=== PATIENT | female | born 1960 | race Caucasian/White ===

== ENCOUNTER 2020-02-17 11:43 | Inpatient (IN) | payer OTHER ==
[~2020-02-17] VITALS: Ht 160 cm; Wt 90.7 kg
[~2020-02-17 11:43] MED LIST: FLOMAX0.4 MG PO; HTN MED; NORCO 5-325 TA1 EACH PO; ZOFRAN4 MG PO
[2020-02-17 11:52] VITALS: BP 172/90
[2020-02-17 12:12] LABS: ABSOLUTE BASOPHILS 0.1 thou/uL (0.0-0.2); ABSOLUTE EOSINOPHILS 0.1 thou/uL (0.0-0.7); ABSOLUTE LYMPHOCYTES 1.3 thou/uL (0.8-5.3); ABSOLUTE MONOCYTES 0.9 thou/uL (0.0-1.2); ABSOLUTE NEUTROPHILS 7.7 thou/uL (1.6-8.1); BASOPHILS 0.6 %; EOSINOPHILS 1.2 %; HEMATOCRIT 45.4 % (37.0-47.0); HEMOGLOBIN 15.5 gm/dL (12.0-15.0); LYMPHOCYTES 12.7 %; MCHC 34.2 g/dL (28.0-37.0); MCV 96.4 fL (80.0-100.0); MONOCYTES 8.9 %; MPV 9.6 fl. (7.2-11.1); NUCLEATED RBCS 0 /100WBC; PLATELET COUNT* 102 thou/uL (150-400); POLYS 76.6 %; RBC 4.71 mil/uL (4.20-5.00)
[2020-02-17 12:21] LABS: CALCIUM 10.1 mg/dL (8.5-10.1); POTASSIUM 3.5 mmol/L (3.5-5.1)
[2020-02-17 12:25] LABS: ALBUMIN 3.1 g/dL (3.4-5.0); TOTAL BILIRUBIN 1.9 mg/dL (<0.1-1.0); TOTAL PROTEIN 6.5 g/dL (6.4-8.2)
[2020-02-17 12:33] LABS: APTT 21.7 Seconds (25.0-31.3); PROTIME 10.1 Seconds (9.20-11.50)
[2020-02-17 15:05] LABS: BE -0.1 mmol/L (-2 to +3); pH 7.384 (7.340-7.450)
[2020-02-17 15:07] LABS: PO2 55.2 mmHg (75.0-100.0)
--- NOTE | 2020-02-17 16:17 | EKG ---
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1960 Requested By: Kelly Mcneil Order Number: [id number] MD: Alonso Simon Measurements Intervals [place] Rate: 83 P: 3 DE: 185 QRS: -41 QRSD: 95 T: 29 QT: 373 QTc: 439 Interpretive Statements Sinus rhythm Left axis deviation Abnormal R-wave progression, late transition Compared to ECG 01/29/2006 21:07:28 Left-axis deviation now present Ventricular premature complex(es) no longer present Electronically Signed On 02-17-2020 16:15:49 CDT by Alonso Simon [email or web address] <ELECTRONICALLY SIGNED> By: Alonso Simon MD, FAC 02/17/20 1615 1153 1153 Alonso Simon MD, LOCATED WITHIN [facility] /EPI
[2020-02-17 16:37] LABS: INFLUENZA A ANTIGEN Negative (Negative); INFLUENZA B ANTIGEN Negative (Negative)
[2020-02-17 18:45] VITALS: BP 141/80
[2020-02-17 18:50] LABS: DIRECT BILIRUBIN 0.6 mg/dL (<0.1-0.3); TOTAL BILIRUBIN 1.9 mg/dL (<0.1-1.0)
--- NOTE | 2020-02-17 20:27 | NUR ---
I TOOK REPORT ON THE PATIENT AT 0840 FROM THE ED FROM [facility]. PATIENT WAS SETTLED AND WAS CONTACTED. HER LEVOQUIN WAS COMPLETED. FALL RISK SHEET WAS SIGNED AND WRIST BAND WAS VERIFIED. REPORT WAS GIVEN TO BRUCE. ADMISSION IS NOT COMPLETED.
[2020-02-17 21:00] VITALS: BP 143/79
[2020-02-18] VITALS: BP 164/87
[2020-02-18 04:00] VITALS: BP 159/91
--- NOTE | 2020-02-18 04:13 | NUR ---
PT A&OX4, ASSESSMENTS COMPLETED CHARTED, MEDICATIONS ADMINISTERED PER MAR. HOURLY ROUNDING FOR SAFETY. CONT ISOLATION AIRBORNE AND CONTACT. CALL LIGHT WITHIN REACH, CONT PLAN OF CARE.
[2020-02-18 04:36] LABS: HEMATOCRIT 42.7 % (37.0-47.0); HEMOGLOBIN 14.4 gm/dL (12.0-15.0); MCH 32.6 pg (26.0-34.0); MCHC 33.6 g/dL (28.0-37.0); MPV 10.2 fl. (7.2-11.1); RBC 4.4 mil/uL (4.20-5.00); RDW-CV 14.9 % (10.5-14.5); WBC 10.2 thou/uL (4.0-11.0)
[2020-02-18 04:52] LABS: ALBUMIN 2.4 g/dL (3.4-5.0); ALKALINE PHOSPHATASE 150 U/L (46-116); ANION GAP 6 mmol/L (7-16); BUN 19 mg/dL (7-18); CALCIUM 9.7 mg/dL (8.5-10.1); CHLORIDE 109 mmol/L (98-107); CHOLESTEROL 171 mg/dL (<200); CO2 29 mmol/L (21-32); CREATININE 1.1 mg/dL (0.6-1.3); GLUCOSE 98 mg/dL (70-99); HDL CHOLESTEROL 69 mg/dL (>40); LDL CHOLESTEROL 83 mg/dL (<100); MAGNESIUM 2.3 mg/dL (1.8-2.4); POTASSIUM 3.9 mmol/L (3.5-5.1); SERUM ASSESSMENT CLEAR; SGOT 36 U/L (15-37); SGPT 43 U/L (30-65); SODIUM 144 mmol/L (136-145); TC:HDL 2.5 Ratio (Not establshd); TOTAL BILIRUBIN 1.8 mg/dL (<0.1-1.0); TOTAL PROTEIN 5.9 g/dL (6.4-8.2); TRIGLYCERIDE 97 mg/dL (<150); VLDL 19 mg/dL (<40)
--- NOTE | 2020-02-18 11:07 | EKG ---
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1960 Requested By: Everette White Order Number: [id number] Joshua MD: Alonso Simon Measurements Intervals [place] Rate: 80 P: 23 ID: 176 QRS: -35 QRSD: 98 T: 17 QT: 395 QTc: 456 Interpretive Statements Sinus rhythm Left axis deviation Low voltage, extremity leads Abnormal R-wave progression, late transition Compared to ECG 02/17/2020 11:53:01 Low QRS voltage now present Electronically Signed On 02-18-2020 11:06:32 CDT by Alonso Simon [email or web address] <ELECTRONICALLY SIGNED> By: Alonso Simon MD, [facility] 02/18/20 1106 0026 0026 Alonso Simon MD, FAC /EPI
--- NOTE | 2020-02-18 11:07 | EKG ---
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1960 Requested By: Everette White Order Number: [id number] Joshua MD: Alonso Simon Measurements Intervals [place] Rate: 75 P: 18 [place]: 174 QRS: -23 QRSD: 100 T: 10 QT: 392 QTc: 438 Interpretive Statements Sinus rhythm Ventricular premature complex Borderline left axis deviation Borderline low voltage, extremity leads Abnormal R-wave progression, late transition Compared to ECG 02/17/2020 11:53:01 Ventricular premature complex(es) now present Electronically Signed On 02-18-2020 11:06:11 CDT by Alonso Simon [email or web address] <ELECTRONICALLY SIGNED> By: Alonso Simon MD, [facility] 02/18/20 1106 08 08 Alonso Simon MD, [facility] /EPI
--- NOTE | 2020-02-18 12:17 | 2DMMODE ---
[place] [address] 2 D/M-MODE ECHOCARDIOGRAM Name: YASHARINI Room: [address] IN [facility]#: [id number] Admission: 02/17/20 Attend Phys: Everette White, Discharge: Date of : 64 Date of Service: 02/18/20 1216 Report #: [id number] THIS REPORT FOR: cc: Alonso Mendiola III, Ghaison F. DO Holkins,Alonso Bocanegra MD [facility] ~ APPROVED REPORT Study performed: 02/18/2020 10:52:46 EXAM: Comprehensive 2D, Doppler, and color-flow Echocardiogram Patient Location: In-Patient Room #: 108 Status: routine BSA: 1.93 HR: 81 bpm BP: 159/91 mmHg Rhythm: NSR Other Information Study Quality: Good Indications Chest Pain 2D Dimensions IVSd: 13.65 (7-11mm) LVOT Diam: 19.69 (18-24mm) LVDd: 45.02 mm PWd: 12.00 (7-11mm) Ascending Ao: 30.39 (22-36mm) LVDs: 28.57 (25-40mm) Aortic Root: 32.59 mm Volumes Left Atrial Volume (Systole) LA ESV Index: 26.40 mL/m2 Aortic Valve AoV Peak Darian.: 1.46 m/s AO Peak Gr.: 8.53 mmHg LVOT Max P.64 mmHg AO Mean Gr.: 4.89 mmHg LVOT Mean P.47 mmHg LVOT Max V: 1.38 m/s AO V2 VTI: 27.19 cm LVOT Mean V: 0.83 m/s SUSANA (VTI): 2.89 cm2 LVOT V1 VTI: 25.77 [place] [address] 2 D/M-MODE ECHOCARDIOGRAM Name: HARINI SORENSON Room: [address] IN ..#: [id number] Admission: 02/17/20 Attend Phys: Everette White, Discharge: Date of : 64 Date of Service: 02/18/20 1216 Report #: [id number] Mitral Valve E/A Ratio: 0.75 MV Decel. Time: 256.92 ms MV E Max Darian.: 0.51 m/s MV PHT: 74.51 ms MVA (PHT): 2.95 cm2 TDI E/Lateral E': 5.67 E/Medial E': 8.50 Medial E' Darian.: 0.06 m/s Lateral E' Darian.: 0.09 m/s Pulmonary Valve PV Peak Darian.: 1.00 m/s PV Peak Gr.: 3.99 mmHg Left Ventricle The left ventricle is normal size. There is normal LV segmental wall motion. Mild concentric left ventricular hypertrophy. Left ventricular systolic function is normal. The left ventricular ejection fraction is within the normal range. LVEF is 60-65%. Grade I - abnormal relaxation pattern. Right Ventricle The right ventricle is normal size. The right ventricular systolic function is normal. Atria The left atrium size is normal. The right atrium size is normal. Aortic Valve The aortic valve is normal in structure. No aortic regurgitation is present. There is no aortic valvular stenosis. Mitral Valve The mitral valve is normal in structure. Trace mitral regurgitation. No evidence of mitral valve stenosis. Tricuspid Valve The tricuspid valve is normal in structure. Trace tricuspid regurgitation. Unable to assess PA pressure. Pulmonic Valve The pulmonary valve is normal in structure. There is no pulmonic [place] [address] 2 D/M-MODE ECHOCARDIOGRAM Name: HARINI SORENSON Room: [address] IN [facility]#: [id number] Admission: 02/17/20 Attend Phys: Everette White, Discharge: Date of : 64 Date of Service: 02/18/20 1216 Report #: [id number] Great Vessels The aortic root is normal in size. IVC is normal in size and collapses >50% with inspiration. Pericardium There is no pericardial effusion. <Conclusion> The left ventricle is normal size. Mild concentric left ventricular hypertrophy. Left ventricular systolic function is normal. The left ventricular ejection fraction is within the normal range. LVEF is 60-65%. Grade I - abnormal relaxation pattern. The right ventricle is normal size. The left atrium size is normal. The aortic valve is normal in structure. The mitral valve is normal in structure. Trace mitral regurgitation. The tricuspid valve is normal in structure. IVC is normal in size and collapses >50% with inspiration. There is no pericardial effusion. There is normal LV segmental wall motion. <ELECTRONICALLY SIGNED> By: Alonso Simon MD, FACC 02/18/20 1216 1216 1216 Alonso Simon MD, FACC /INF
[2020-02-18 16:00] VITALS: BP 121/74
--- NOTE | 2020-02-18 16:03 | NUR ---
CM ATTEMPTED TO CONTACT THE PT TO DISCUSS DISCHARGE PLANNING NEEDS. PT DID NOT ANSWER THE PHONE. CM WILL F/U WITH THE PT AT ANOTHER TIME.
--- NOTE | 2020-02-18 18:50 | NUR ---
SARANYA RESTING IN BED. VSS. SARANYA IS MED/SURG STATUS NOW. COMMUNICATION PER WRITING SHE HAS BILATERAL DEAFNESS. HOURY ROUNDING FOR PATINET SAFETY.
[2020-02-18 20:00] VITALS: BP 156/92
[2020-02-19 02:06] LABS: HEPATITIS B SURFACE AG Negative (Negative)
[2020-02-19 05:53] LABS: HEMATOCRIT 41.2 % (37.0-47.0); HEMOGLOBIN 13.8 gm/dL (12.0-15.0); MCH 32.7 pg (26.0-34.0); MCHC 33.6 g/dL (28.0-37.0); MCV 97.4 fL (80.0-100.0); RBC 4.23 mil/uL (4.20-5.00); RDW-CV 14.6 % (10.5-14.5); WBC 8.1 thou/uL (4.0-11.0)
--- NOTE | 2020-02-19 05:57 | NUR ---
ASSUMED PATIENT CARE AT 1900. ASSESSMENT COMPLETED CHARTED. PATIENT IS MED-SURG. HOURLY ROUNDING IN PLACE FOR PATIENT SAFETY. CLWR.
[2020-02-19 06:10] LABS: % SATURATION 30 % (20-39); IRON 63 ug/dL (50-175)
[2020-02-19 06:14] LABS: ALBUMIN 2.3 g/dL (3.4-5.0); CALCIUM 9.9 mg/dL (8.5-10.1); MAGNESIUM 2.5 mg/dL (1.8-2.4); POTASSIUM 3.9 mmol/L (3.5-5.1); TOTAL BILIRUBIN 1.8 mg/dL (<0.1-1.0); TOTAL PROTEIN 5.6 g/dL (6.4-8.2)
[2020-02-19 08:53] VITALS: BP 121/78
[2020-02-19] MEDS ORDERED: ASPIR 8181 MG PO (10:08)
[2020-02-19] MEDS ORDERED: LEVAQUIN 750 M750 MG PO (10:08)
[2020-02-19 11:51] VITALS: BP 121/78
--- NOTE | 2020-02-19 13:58 | NUR ---
PT DISCHARGED TO HOME SELF CARE. PT IS STABLE. LT AC IV DISCONTINUED. DISCHARGE PAPERWORK COMPLETED,REVIEWED, AND SENT WITH THE PT. PRESCRIPTION FOR ABT CALLED INTO THE PHARMACY. TRANSPORTED TO PERSONAL VEHICLE VIA W/C ACCOMPANIED BY STAFF. PT HAS ALL BELONGINGS.
[2020-02-21 12:07] LABS: ANA INTERPRETATION Negative (Negative)
--- NOTE | 2020-02-21 15:29 | EKG ---
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1960 Requested By: Everette White Order Number: [id number] Joshua MD: Luis Fernando Rojas Measurements Intervals [place] Rate: 82 P: -18 AR: 187 QRS: -36 QRSD: 94 T: 6 QT: 376 QTc: 439 Interpretive Statements Sinus rhythm Left axis deviation Borderline low voltage, extremity leads Abnormal R-wave progression, late transition Compared to ECG 02/18/2020 00:26:12 No significant changes Electronically Signed On 02-21-2020 15:28:28 CDT by Luis Fernando Rojas [email or web address] <ELECTRONICALLY SIGNED> By: Luis Fernando Rojas MD, FACC 02/21/20 1528 2144 2144 Luis Fernando Rojas MD, [facility] /EPI
--- NOTE | 2020-02-21 15:30 | EKG ---
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1960 Requested By: Randell Cadena Order Number: [id number] Joshua MD: Luis Fernando Rojas Measurements Intervals [place] Rate: 80 P: 16 [place]: 184 QRS: -32 QRSD: 98 T: 6 QT: 390 QTc: 450 Interpretive Statements Sinus rhythm Left axis deviation Borderline low voltage, extremity leads Abnormal R-wave progression, late transition Compared to ECG 02/18/2020 00:26:12 No significant changes Electronically Signed On 02-21-2020 15:28:45 CDT by Luis Fernando Rojas [email or web address] <ELECTRONICALLY SIGNED> By: Luis Fernando Rojas MD, [facility] 02/21/20 1528 2145 2145 Luis Fernando Rojas MD, FAC /EPI
== END 2020-02-19 13:30 | disposition home or self-care (01) | DRG 193 ==
LOC: M.ERS 11:43 → M.TBA-ER 14:27 → M.ORTHSURG 14:27
PROVIDERS: Internal Medicine Gastroenterology; Physician Assistant; ADMIT Internal Medicine
DX: J15.9 Unspecified bacterial pneumonia (principal); J96.01 Acute respiratory failure with hypoxia; E66.9 Obesity, unspecified; D69.6 Thrombocytopenia, unspecified; D75.1 Secondary polycythemia; K75.81 Nonalcoholic steatohepatitis (NASH); Z09 Encounter for follow-up examination after completed treatment for conditions other than malignant neoplasm; Z86.711 Personal history of pulmonary embolism; K74.60 Unspecified cirrhosis of liver; Z88.0 Allergy status to penicillin; Z90.49 Acquired absence of other specified parts of digestive tract; Z90.710 Acquired absence of both cervix and uterus; Z68.35 Body mass index [BMI] 35.0-35.9, adult